=== PATIENT | male | born 1950 | race Two or more races ===

== ENCOUNTER 2024-10-08 11:01 | Inpatient (IN) | payer OTHER, MEDICAID ==
[~2024-10-08] VITALS: Ht 180.3 cm; Wt 138.3 kg
[2024-10-08] VITALS (31 sets, daily range): BP systolic 36–152; BP diastolic 24–70; TEMP 93.7–96.1; O2SAT 96–100
[2024-10-08] MEDS: DEXTROSE 50%-WATER 50 ML DISP.SYRIN IVP ONE (11:03)
[2024-10-08] MEDS: ROCURONIUM BROMIDE 100 MG/10 ML VIAL IV ONE (11:09)
[2024-10-08] MEDS: ETOMIDATE 2 MG/ML VIAL IV ONE (11:09)
[2024-10-08] MEDS ORDERED: NOREPINEPHRINE 8MG/250ML RTU 250 ML IV ONE ×4 (11:12→15:41)
[2024-10-08] MEDS: NOREPINEPHRINE 8 MG in IV NS 0.9% 250 ML IV ONE (11:17)
[2024-10-08 11:49] LABS: BASOPHILS # (AUTO) 0.1 K/uL (0.0-0.2); BASOPHILS % (AUTO) 0.4 % (0.0-2.0); EOSINOPHILS # (AUTO) 0.2 K/uL (0.0-0.7); EOSINOPHILS % (AUTO) 0.6 % (0.0-6.0); HEMATOCRIT 36 % (39-51); HEMOGLOBIN 10.4 g/dL (13.5-17.5); LYMPHOCYTES # (AUTO) 3.6 K/uL (0.8-4.8); LYMPHOCYTES % (AUTO) 11.8 % (20.0-44.0); MEAN CORPUSCULAR HEMOGLOBIN 26 PG (26.0-33.0); MEAN CORPUSCULAR HGB CONC 29 g/dl (31.0-36.0); MEAN CORPUSCULAR VOLUME 92 fL (80-96); MONOCYTES # (AUTO) 0.9 K/uL (0.1-1.30); MONOCYTES % (AUTO) 2.8 % (2.0-12.0); NEUTROPHILS # (AUTO) 25.9 K/uL (1.8-8.9); NEUTROPHILS % (AUTO) 84.4 % (43.0-81.0); PLATELET COUNT (AUTO) 537 K/uL (150-450); RED BLOOD CELL COUNT(AUTO) 3.98 MIL/uL (4.5-6.0); RED CELL DISTRIBUTION WIDTH 25.8 % (11.5-15.0)
[2024-10-08] MEDS: IV NS 0.9% 1,000 ML BAG IV ONE (11:50)
[2024-10-08 11:51] LABS: WHITE BLOOD COUNT (AUTO) 30.7 K/uL (4.3-11.0)
[2024-10-08 11:55] LABS: CALCIUM, SERUM 7.7 mg/dL (8.5-10.1); CARBON DIOXIDE 18 mmol/L (21-32); CHLORIDE 110 mmol/L (98-107); CREATININE 3.4 mg/dL (0.6-1.3); GLUCOSE 133 mg/dL (74-106); SODIUM SERUM 142 mmol/L (136-145); UREA NITROGEN, BLOOD 53 mg/dL (7-18)
[2024-10-08] MEDS ORDERED: IV NS 0.9% 500 ML BAG IV ONE (12:00)
[2024-10-08 12:05] LABS: INR 1.83 (0.91-1.10); LACTIC ACID 4.3 mmol/L (0.4-2.0); PARTIAL THROMBOPLASTIN TIME 56.9 SEC (24.3-34.3); PROTHROMBIN TIME 18.6 SECS (9.2-11.1)
[2024-10-08 12:09] LABS: ALANINE AMINOTRANSFERASE 19 U/L (12-78); ALKALINE PHOSPHATASE 439 U/L (46-116); ASPARTATE AMINOTRANSFERASE 83 U/L (15-37); BILIRUBIN,DIRECT 1.7 mg/dL (0.0-0.2); TOTAL PROTEIN, SERUM 5.2 g/dL (6.4-8.2)
[2024-10-08] MEDS: CEFEPIME 1 GM in IV D5W 50 ML IV ONE (12:10)
[2024-10-08 12:11] LABS: ALBUMIN 1.4 g/dL (3.4-5.0)
[2024-10-08] MEDS ORDERED: METO50TA16 PO (12:11)
[2024-10-08] MEDS ORDERED: AMIN30LI2 PO (12:11)
[2024-10-08] MEDS ORDERED: POTA10CA43 PO (12:11)
[2024-10-08] MEDS ORDERED: DIPH25TA62 PO (12:11)
[2024-10-08] MEDS ORDERED: ATOR40TA PO (12:11)
[2024-10-08] MEDS ORDERED: ASCO-352 PO (12:11)
[2024-10-08] MEDS ORDERED: ONDA4TAB5 PO (12:11)
[2024-10-08] MEDS ORDERED: FURO-144 PO (12:11)
[2024-10-08] MEDS ORDERED: ENOX120D5 SQ (12:11)
[2024-10-08] MEDS ORDERED: LINA145C PO (12:11)
[2024-10-08] MEDS ORDERED: MULT-213 PO (12:11)
[2024-10-08] MEDS ORDERED: LACT20SO4 PO (12:11)
[2024-10-08] MEDS ORDERED: ZINC220T3 PO (12:11)
[2024-10-08] MEDS ORDERED: IPRA3AMP22 IH (12:11)
[2024-10-08] MEDS ORDERED: EMPA10TA PO (12:11)
[2024-10-08] MEDS ORDERED: FOLI0.4T6 PO (12:11)
[2024-10-08] MEDS ORDERED: CLON0.1T PO (12:11)
[2024-10-08] MEDS ORDERED: PREG100C PO (12:11)
[2024-10-08 12:26] LABS: ACETAMINOPHEN < 10 ug/ml (10-30); ALCOHOL, BLOOD < 3 mg/dL (0-10)
[2024-10-08 12:29] LABS: SALICYLATE < 0.2 mg/dL (2.8-20.0)
[2024-10-08 12:34] LABS: ABG BASE EXCESS -12.3 mmol/L (-2.0-3.0); ABG OXYGEN SATURATION 97.5 % (94.0-98.0); ABG PCO2 37.2 mmHg (35.0-48.0); ABG PH 7.213 (7.350-7.450); ABG PO2 120.3 mmHg (83.0-108.0); ABG TOTAL HEMOGLOBIN 11.9 G/dL (13.5-17.5); COHb 0.1 % (0.5-1.5); MetHb 0.1 % (0.0-1.5); O2Hb 97.3 % (94.0-97.0); PEEP,BG 5 cm H2O; SITE, ABG LEFT RADIAL; VT, ABG 500 mL
[2024-10-08] MEDS: VANCOMYCIN 1 GM in IV D5W 250 ML IV ONE (12:45)
[2024-10-08 13:52] LABS: APPEARANCE,URINE CLEAR (CLEAR); BILIRUBIN,URINE 1+ (NEGATIVE); BLOOD, URINE TRACE-INTA Ery/uL (NEGATIVE); COLOR,URINE YELLOW (YELLOW); KETONES,URINE TRACE mg/dL (NEGATIVE); LEUKOCYTE ESTERASE ,URINE 3+ (NEGATIVE); NITRITE, URINE POSITIVE (NEGATIVE); PROTEIN,URINE TRACE mg/dl (NEGATIVE); UGLUCOSE NEGATIVE (NEGATIVE)
[2024-10-08 13:55] LABS: AMPHETAMINE, URINE NEGATIVE (NEGATIVE); BARBITURATE, URINE NEGATIVE (NEGATIVE); BENZODIAZEPINE, URINE NEGATIVE (NEGATIVE); CANNABINOID, URINE NEGATIVE (NEGATIVE); COCCAINE, URINE NEGATIVE (NEGATIVE); PHENCYCLIDINE SCREEN,URINE NEGATIVE (NEGATIVE)
[2024-10-08 13:56] LABS: OPIATE, URINE POSITIVE (NEGATIVE)
[2024-10-08 13:56] LABS: ANISOCYTOSIS 1+; LYMPHOCYTES % (MANUAL) 12 % (16-48); MONOCYTES % (MANUAL) 3 % (0-11.0); NEUTROPHILS % (MANUAL) 85 (42-76); PLATELET ESTIMATE INCREASED
[2024-10-08 13:57] LABS: HYPOCHROMASIA 1+
[2024-10-08 13:58] LABS: ADD URINE CULTURE YES; BACTERIA,URINE Many /HPF (None Seen); SQUAMOUS EPITHELIAL CELL,UR Few /HPF (None Seen); WBC,URINE 21-50 /HPF (0-3); YEAST,URINE Many /HPF (None Seen)
[2024-10-08] MEDS ORDERED: ETOMIDATE 2 MG/ML VIAL IV ONE (15:14)
[2024-10-08] MEDS ORDERED: ONDANSETRON HCL/PF 4 MG/2 ML VIAL IVP PRN (16:00)
[2024-10-08] MEDS ORDERED: ACETAMINOPHEN 325 MG TABLET PO PRN (16:00)
[2024-10-08] MEDS ORDERED: NOREPINEPHRINE 8 MG in IV D5W 242 ML IV PRN ×2 (16:00→16:30)
[2024-10-08] MEDS ORDERED: Folic acid 1 MG/0.2 ML VIAL IM ONE (16:30)
[2024-10-08] MEDS: IV NS 0.9% 1,000 ML IV PRN (16:50)
[2024-10-08] MEDS ORDERED: DIATR MEGLU/DIATRIZOATE SODIUM 30 ML BOTTLE (GASTROGRAPHIN) ONE (17:34)
[2024-10-08] MEDS: PHENYLEPHRINE 100 MG in IV NS 0.9% 240 ML IV PRN (17:55)
[2024-10-08] MEDS: FOLIC ACID 1 MG TABLET GT ONE (18:03)
[2024-10-08] MEDS: HEPARIN SODIUM, PORCINE 5000 UNITS/1 ML VIAL SQ SCH (18:05)
[2024-10-08] MEDS: LACTULOSE 10 G/15 ML UDC (PYXIS) PO SCH (18:05)
[2024-10-08] MEDS: PANTOPRAZOLE 40 MG VIAL IV SCH (18:07)
[2024-10-08] MEDS: BLOOD SUGAR DIAGNOSTIC 1 EACH STRIP IN SCH (18:12)
[2024-10-08] MEDS: ZOSYN IVPB 2.25 G in IV D5W 50ml IV SCH (18:13)
[2024-10-08] MEDS: VANCOMYCIN HCL 1.25 GM in IV D5W 250 ML IV ONE (18:51)
[2024-10-08] MEDS: NOREPINEPHRINE 32 MG in IV NS 0.9% 218 ML IV PRN (18:53)
[2024-10-08] MEDS: IV NS 0.9% 250 ML IV PRN (19:09)
[2024-10-08] MEDS ORDERED: PROPOFOL 10MG/ML 50ML 50 ML IV PRN (20:30)
[2024-10-08] MEDS: PROPOFOL 100 ML IV PRN (20:36)
[2024-10-08] MEDS: ATORVASTATIN 40 MG TABLET PO SCH (21:38)
[2024-10-08] MEDS ORDERED: IV NS 0.9% 250 ML IV PRN (23:30)
[2024-10-09] VITALS (88 sets, daily range): BP systolic 79–109; BP diastolic 23–85; TEMP 97.5–98.5; O2SAT 93–100
[2024-10-09 04:17] LABS: BASOPHILS # (AUTO) 0.1 K/uL (0.0-0.2); BASOPHILS % (AUTO) 0.2 % (0.0-2.0); EOSINOPHILS # (AUTO) 0.3 K/uL (0.0-0.7); EOSINOPHILS % (AUTO) 0.7 % (0.0-6.0); HEMATOCRIT 31 % (39-51); HEMOGLOBIN 9.3 g/dL (13.5-17.5); LYMPHOCYTES # (AUTO) 2.7 K/uL (0.8-4.8); LYMPHOCYTES % (AUTO) 5.9 % (20.0-44.0); MEAN CORPUSCULAR HEMOGLOBIN 27 PG (26.0-33.0); MEAN CORPUSCULAR HGB CONC 30 g/dl (31.0-36.0); MEAN CORPUSCULAR VOLUME 92 fL (80-96); MONOCYTES # (AUTO) 1.2 K/uL (0.1-1.30); MONOCYTES % (AUTO) 2.6 % (2.0-12.0); NEUTROPHILS % (AUTO) 90.6 % (43.0-81.0); PLATELET COUNT (AUTO) 494 K/uL (150-450); RED BLOOD CELL COUNT(AUTO) 3.44 MIL/uL (4.5-6.0); RED CELL DISTRIBUTION WIDTH 25.1 % (11.5-15.0)
[2024-10-09 04:27] LABS: CARBON DIOXIDE 13 mmol/L (21-32); CHLORIDE 114 mmol/L (98-107); GLUCOSE 100 mg/dL (74-106); MAGNESIUM 1.5 mg/dL (1.8-2.4); POTASSIUM 3.9 mmol/L (3.5-5.1); SODIUM SERUM 144 mmol/L (136-145); UREA NITROGEN, BLOOD 44 mg/dL (7-18)
[2024-10-09 04:34] LABS: CALCIUM, SERUM 5.6 mg/dL (8.5-10.1)
[2024-10-09 04:48] LABS: WHITE BLOOD COUNT (AUTO) 46.4 K/uL (4.3-11.0)
[2024-10-09 05:26] LABS: ANISOCYTOSIS 2+; HYPOCHROMASIA 1+; LYMPHOCYTES % (MANUAL) 3 % (16-48); MONOCYTES % (MANUAL) 2 % (0-11.0); NEUTROPHILS % (MANUAL) 95 (42-76); PLATELET ESTIMATE ADEQUATE
[2024-10-09] MEDS: Magnesium 1GM/D5W 100ML PREMIX PIGGYBACK IV ONE (06:08)
[2024-10-09] MEDS: Calcium Gluconate 0.465 MEQ/ML VIAL IV ONE (06:09)
[2024-10-09] MEDS: AMIODARONE 150 MG in IV D5W 100 ML IV ONE (06:33)
[2024-10-09] MEDS: AMIODARONE 450 MG in IV D5W 241 ML IV PRN (06:48)
[2024-10-09 06:50] LABS: BILIRUBIN,DIRECT 1.6 mg/dL (0.0-0.2); BILIRUBIN,TOTAL 2.3 mg/dL (0.2-1.0); TOTAL PROTEIN, SERUM 4.2 g/dL (6.4-8.2)
[2024-10-09 07:43] LABS: ALBUMIN 1.1 g/dL (3.4-5.0)
[2024-10-09] MEDS: PANTOPRAZOLE 40 MG/PACK PACK NG SCH (08:16)
[2024-10-09] MEDS: ASCORBIC ACID 500 MG TABLET PO SCH (08:16)
[2024-10-09] MEDS: MULTIVIT W/MINERALS 1 TAB TABLET GT SCH (08:16)
[2024-10-09] MEDS: ZINC SULFATE 220 MG CAPSULE PO SCH (08:18)
[2024-10-09 09:26] LABS: ABG BASE EXCESS -17.2 mmol/L (-2.0-3.0); ABG PCO2 32.2 mmHg (35.0-48.0); ABG PH 7.138 (7.350-7.450); ABG TOTAL HEMOGLOBIN 11.1 G/dL (13.5-17.5); COHb 0.3 % (0.5-1.5); MetHb 0.3 % (0.0-1.5); O2Hb 93.4 % (94.0-97.0); PEEP,BG 5 cm H2O; SITE, ABG LEFT RADIAL; VT, ABG 500 mL
[2024-10-09] MEDS: PROSOURCE / PROSTAT (PYXIS) 30 ML UDC GT SCH (09:45)
[2024-10-09] MEDS: IV NS 0.9% 1,000 ML IV ONE (10:55)
[2024-10-09] MEDS: MEROPENEM 1 G in IV NS 0.9% 100 ML IV SCH (11:07)
[2024-10-09] MEDS: Sodium Bicarbonate 100 MEQ in IV 1/2NS 1000 ML 1,000 ML IV SCH (11:08)
[2024-10-09] MEDS: Calcium Gluconate 1GM/10ML 4.65 MEQ in IV NS 0.9% 100 ML IV ONE (12:20)
[2024-10-09] MEDS ORDERED: GLUCERNA 1.2 1,000 ML BOTTLE NG PRN (13:30)
[2024-10-09] MEDS ORDERED: CALCIUM CHLORIDE 1,000 MG/10 ML DISP.SYRIN IV ONE (14:28)
[2024-10-09] MEDS: INSULIN REGULAR, HUMAN 100 UNIT/ML 3 ML VIAL SQ PRN (18:11)
[2024-10-09] MEDS: VASOPRESSIN INJ 40 UNIT in IV NS 0.9% 38 ML IV PRN (23:36)
[2024-10-09] MEDS: VASOPRESSIN INJ 20 UNIT/ML VIAL ONE (23:43)
[2024-10-10] VITALS (88 sets, daily range): BP systolic 49–139; BP diastolic 20–100; TEMP 96.7–98.6; O2SAT 74–96
[2024-10-10 08:12] LABS: BASOPHILS # (AUTO) 0.1 K/uL (0.0-0.2); BASOPHILS % (AUTO) 0.3 % (0.0-2.0); EOSINOPHILS # (AUTO) 0.6 K/uL (0.0-0.7); HEMATOCRIT 30 % (39-51); HEMOGLOBIN 8.7 g/dL (13.5-17.5); LYMPHOCYTES # (AUTO) 4.1 K/uL (0.8-4.8); LYMPHOCYTES % (AUTO) 13.4 % (20.0-44.0); MEAN CORPUSCULAR HEMOGLOBIN 28 PG (26.0-33.0); MEAN CORPUSCULAR HGB CONC 29 g/dl (31.0-36.0); MEAN CORPUSCULAR VOLUME 96 fL (80-96); MONOCYTES # (AUTO) 0.7 K/uL (0.1-1.30); MONOCYTES % (AUTO) 2.2 % (2.0-12.0); NEUTROPHILS # (AUTO) 25.2 K/uL (1.8-8.9); NEUTROPHILS % (AUTO) 82.1 % (43.0-81.0); PLATELET COUNT (AUTO) 348 K/uL (150-450); RED BLOOD CELL COUNT(AUTO) 3.07 MIL/uL (4.5-6.0); RED CELL DISTRIBUTION WIDTH 24.1 % (11.5-15.0)
[2024-10-10 08:33] LABS: WHITE BLOOD COUNT (AUTO) 30.7 K/uL (4.3-11.0)
[2024-10-10 09:56] LABS: ABG BASE EXCESS -18.9 mmol/L (-2.0-3.0); ABG OXYGEN SATURATION 88.6 % (94.0-98.0); ABG PCO2 42.9 mmHg (35.0-48.0); ABG PH 7.026 (7.350-7.450); ABG PO2 69.4 mmHg (83.0-108.0); ABG TOTAL HEMOGLOBIN 9.9 G/dL (13.5-17.5); COHb 0.3 % (0.5-1.5); MetHb 0.3 % (0.0-1.5); O2Hb 88.1 % (94.0-97.0); PEEP,BG 0 cm H2O; SITE, ABG RIGHT RADIAL; VT, ABG 500 mL
[2024-10-10] MEDS: SODIUM BICARBONATE SYR 50 MEQ/50 ML DISP.SYRIN IV ONE (10:07)
[2024-10-10] MEDS: DAKINS QUARTER STRENGTH (0.125%) 480 ML BOTTLE TOP SCH (10:18)
[2024-10-10 11:57] LABS: ANISOCYTOSIS 1+; LYMPHOCYTES % (MANUAL) 1 % (16-48); MONOCYTES % (MANUAL) 2 % (0-11.0); NEUTROPHILS % (MANUAL) 97 (42-76); PLATELET ESTIMATE ADEQUATE
[2024-10-10] MEDS ORDERED: DOSE PER PHARMACY MICAFUNGIN 1 EA XX PRN (12:00)
[2024-10-10] MEDS ORDERED: DOSING PER PHARMACY-AMIKACI IV XX PRN (12:00)
[2024-10-10 12:32] LABS: BILIRUBIN,TOTAL 2.3 mg/dL (0.2-1.0); CALCIUM, SERUM 6.4 mg/dL (8.5-10.1); PHOSPHORUS 7.5 mg/dL (2.5-4.9); POTASSIUM 5.3 mmol/L (3.5-5.1); TOTAL PROTEIN, SERUM 4.3 g/dL (6.4-8.2)
[2024-10-10] MEDS: DEXTROSE 50%-WATER 50 ML DISP.SYRIN IV PRN (12:50)
[2024-10-10] MEDS: MICAFUNGIN SODIUM 100 MG in IV NS 0.9% 100 ML IV SCH (13:09)
[2024-10-10 16:03] LABS: HIV-1 p24 ANTIGEN NON REACTIVE (NONREACTIVE); HIV-1/2 ANTIBODY NON REACTIVE (NONREACTIVE)
[2024-10-10] MEDS: VANCOMYCIN HCL 1.25 GM in IV D5W 250 ML IV SCH (17:00)
[2024-10-10] MEDS: AMIKACIN 500 MG in IV D5W 100 ML IV SCH (20:26)
[2024-10-11] VITALS (45 sets, daily range): BP systolic 0–88; BP diastolic 0–46; TEMP 96.5–98.2; O2SAT 0–78
[2024-10-11 06:11] LABS: PTH, INTACT 92 pg/mL (15-65)
[2024-10-11] MEDS: UREA 10% -AHA 4% CREAM 57 GM TUBE TP SCH (08:46)
[2024-10-11] MEDS: IV 10% DEXTROSE 1,000 ML IV PRN (13:06)
[2024-10-11] MEDS ORDERED: VANCOMYCIN HCL 1.25 GM in IV D5W 250 ML IV SCH (17:00)
[2024-10-12 12:07] LABS: *SPE A/G RATIO 0.6 (0.7-1.7); *SPE ALBUMIN 1.4 g/dL (2.9-4.4); *SPE ALPHA-1-GLOBULIN 0.2 g/dL (0.0-0.4); *SPE ALPHA-2-GLOBULIN 0.3 g/dL (0.4-1.0); *SPE BETA GLOBULIN 0.5 g/dL (0.7-1.3); *SPE GLOBULIN, TOTAL 2.3 g/dL (2.2-3.9); *SPE M-SPIKE Not Observed g/dL (Not Observed); *SPE PROTEIN TOTAL 3.7 g/dL (6.0-8.5); *SPEGAMMA GLOBULIN 1.2 g/dL (0.4-1.8)
== END 2024-10-11 16:22 | DRG 871 ==
LOC: ER 11:15 → ICU 15:09
PROVIDERS: ADMIT Nurse Practitioner Acute Care; ATTEND Nurse Practitioner Acute Care
PROC: 5A1945Z Respiratory Ventilation, 24-96 Consecutive Hours (ICD-10-PCS; principal; 2024-10-08)
PROC: 0BH17EZ Insertion of Endotracheal Airway into Trachea, Via Natural or Artificial Opening (ICD-10-PCS; 2024-10-08)
PROC: 5A12012 Performance of Cardiac Output, Single, Manual (ICD-10-PCS; 2024-10-08)
PROC: 02HV33Z Insertion of Infusion Device into Superior Vena Cava, Percutaneous Approach (ICD-10-PCS; 2024-10-08)
DX: A41.50 Gram-negative sepsis, unspecified (principal); E43 Unspecified severe protein-calorie malnutrition; J96.00 Acute respiratory failure, unspecified whether with hypoxia or hypercapnia; R65.21 Severe sepsis with septic shock; N17.0 Acute kidney failure with tubular necrosis; L89.154 Pressure ulcer of sacral region, stage 4; I21.A1 Myocardial infarction type 2; N39.0 Urinary tract infection, site not specified; E87.20 Acidosis, unspecified; I48.19 Other persistent atrial fibrillation; Z68.41 Body mass index [BMI] 40.0-44.9, adult; Z51.5 Encounter for palliative care; Z66 Do not resuscitate; E88.09 Other disorders of plasma-protein metabolism, not elsewhere classified; E03.9 Hypothyroidism, unspecified; E11.40 Type 2 diabetes mellitus with diabetic neuropathy, unspecified; Z89.432 Acquired absence of left foot; L85.9 Epidermal thickening, unspecified; Z79.84 Long term (current) use of oral hypoglycemic drugs; R13.10 Dysphagia, unspecified; E66.01 Morbid (severe) obesity due to excess calories; G47.33 Obstructive sleep apnea (adult) (pediatric); R74.01 Elevation of levels of liver transaminase levels; R31.9 Hematuria, unspecified; I12.9 Hypertensive chronic kidney disease with stage 1 through stage 4 chronic kidney disease, or unspecified chronic kidney disease; E11.22 Type 2 diabetes mellitus with diabetic chronic kidney disease; N18.9 Chronic kidney disease, unspecified; D64.9 Anemia, unspecified; E87.6 Hypokalemia; E83.51 Hypocalcemia; Z86.73 Personal history of transient ischemic attack (TIA), and cerebral infarction without residual deficits; R34 Anuria and oliguria
CPT/HCPCS: 31720; 36415; 36600; 70450-TC; 71045-TC; 76770-TC; 80048-TC; 80053-TC; 80076-TC; 80202-TC; 81001; 82140-TC; 82550-TC; 82803-TC; 82962-TC; 83605-TC; 83735-TC; 83880; 83970; 84100-TC; 84155; 84165; 84443-TC; 84478-TC; 84484-TC; 85025-TC; 85378-TC; 85730-TC; 87040-TC; 87081-TC; 87086-TC; 87186-TC; 87806; 93307-TC; 93970-TC; 94002-TC; 94003-TC; 94799-TC; 99082-TC; A4223; A6253; A6403; G0378; G0480; J0171; J0278; J0282; J0612; J0692; J1644; J1815; J2185; J2248; J2470; J2543; J3370; J3475; J3490; J7030; J7050; J7060; Q9963